=== PATIENT | male | born 1945 | race Hispanic/Latino ===

== ENCOUNTER 2018-10-23 14:00 | Outpatient (CLI) | payer MEDICARE, MEDICAID ==
--- NOTE | 2018-10-23 14:19 | RAD ---
XR Shoulder Rt 3 View STANDARD HISTORY:Acute right shoulder pain COMPARISON: 02/25/2008 study. 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 There is also glenohumeral joint space narrowi ng. There is no signs of fracture. Minimal worsening since prior exam. IMPRESSION: Arthritic changes of the shoulder.
== END 2018-10-23 14:01 | disposition home or self-care (01) ==
LOC: BICRAD 14:00
PROVIDERS: ATTEND Family Medicine
DX: M25.511 Pain in right shoulder (principal); M19.012 Primary osteoarthritis, left shoulder

== ENCOUNTER 2018-11-20 11:29 | Day surgery (SDC) | payer MEDICARE, MEDICAID ==
[2018-11-19 11:24] VITALS: BMI 22.6
[2018-11-20] MEDS ORDERED: Oxymetazoline HCl 0.05% ( 15 ML ) ONE ×2 (12:35→13:56)
[2018-11-20 12:38] LABS: Hemoglobin 15.7 g/dL (14.0-18.0)
[2018-11-20] MEDS ORDERED: Lidocaine 1% w/Epinephrine 1:100K 20 ML VIAL ONE (13:56)
[2018-11-20] MEDS ORDERED: EPINEPHrine 1 MG/ML AMP ONE (13:56)
[2018-11-20] MEDS ORDERED: Fentanyl 100 MCG/2 ML VIAL ONE (14:03)
[2018-11-20] MEDS ORDERED: Famotidine/PF 20 mg/2ml Vial ONE (14:03)
[2018-11-20 14:15] LABS: Chloride 106 mmol/L (98-107); Potassium 4.4 mmol/L (3.5-5.1); Sodium 140 mmol/L (136-145)
[2018-11-20 14:16] LABS: Calcium 9.6 mg/dL (7.8-10.44); Glucose 102 mg/dL (83-110)
[2018-11-20 14:17] LABS: Anion Gap 12 mmol/L (10-20); Carbon Dioxide 26 mmol/L (23-31)
[2018-11-20 14:19] LABS: Calc. Creatinine Clearance 40 mL/min (70-130); Estimated GFR-MDRD 46
[2018-11-20 14:20] LABS: BUN (Urea Nitrogen) 33 mg/dL (8.4-25.7)
[2018-11-20] MEDS ORDERED: PROPOFOL 200 MG/20 ML VIAL ONE (15:35)
[2018-11-20] MEDS ORDERED: ePHEDrine 50 MG/ML VIAL ONE (15:35)
[2018-11-20] MEDS ORDERED: Metoclopramide HCl 10 MG/2 ML VIAL ONE (15:35)
[2018-11-20] MEDS ORDERED: Succinylcholine Chloride 20 MG/ML 10 ml SYRINGE FS ONE (15:35)
[2018-11-20] MEDS ORDERED: Ondansetron PF 4 MG/2 ML Vial ONE (15:35)
[2018-11-20] MEDS ORDERED: Lidocaine 1% PF 5 ML VIAL ONE (15:35)
--- NOTE | 2018-11-21 09:56 | OP ---
DATE OF PROCEDURE: 11/20/2018 PREOPERATIVE DIAGNOSES: Profound septal deformity, obstructive inferior turbinate hypertrophy. PROCEDURES PERFORMED: 1. Septoplasty. 2. Bilateral nasal endoscopy with submucosal resection of inferior turbinates. FINDINGS: Profound anterior septal deformity with complete displacement from the maxillary crest. DESCRIPTION OF PROCEDURE: SEPTOPLASTY: After local anesthesia was infiltrated into the submucoperichondrial plane, a standard Jimmy incision was made with a #15 blade down to the level of the septal cartilage. The caudal elevator was used to elevate the mucoperichondrium from the underlying cartilage. We then proceeded beyond the bony cartilaginous junction and elevated the bony periosteum as well. Great attention was paid to the spur to prevent rent formation in the septal flap. A transcartilaginous incision was then made, while preserving an adequate dorsal and caudal cartilaginous strut for tip support. The deformed cartilage was removed and disarticulated from the bony cartilaginous junction and maxillary crest. This was placed in saline and would later be crushed and returned to the mucoperichondrial envelope. We then elevated the contralateral periosteum from the bony cartilaginous region and removed the deformed portions of the bone and bony spurs. The cartilage was then crushed and placed back into the mucoperichondrial envelope and the mucosa was re-approximated with a quilting stitch composed of rapidly absorbent gut suture. The [place] incision was also closed with interrupted gut suture. At the completion of the case, Paige splints were placed and suture secured to the caudal septum. BILATERAL NASAL ENDOSCOPY WITH SUBMUCOSAL RESECTION OF THE INFERIOR TURBINATES: After consent was obtained, the patient was identified, brought to the operating room, and placed on the operating room table in the supine position. Consent was obtained, notifying the patient of the possibility of additional infections, bleeding, brain injury, and eye/orbital injury. The patient was placed on the operating room table, and general endotracheal anesthesia and intravenous access was obtained. The patient was then positioned, prepped and draped for endoscopic sinus surgery. Nasal preparation included trimming nasal vestibular hairs and spraying in topical Afrin. We then placed Afrin topical solution on nasal pledgets and strategically located them intranasally. The perinasal mucosa was injected with 1% lidocaine with 1:100,000 epinephrine in the submucoperichondrial plane of the septum, lateral nasal wall, and anterior to the uncinate. The patient was then prepped and draped in a sterile fashion and positioned for endoscopic sinus surgery. With the 0-degree endoscope, the patient underwent systematic nasal endoscopy. There were no suspicious internasal masses or lesions identified. We then focused our attention to the osteomeatal complex region under the middle turbinate. The inferior turbinates were visualized with a 0 degree endoscope and outfractured with a [place] elevator. The inferior medial aspect was cauterized with the electrocautery. Hemostasis was obtained . After adequate airway was established, we turned our attention to the contralateral side and used a similar procedure. Again, a [place] elevator was used to outfracture inferior turbinates under endoscopic visualization. With a suction cautery, the free inferior medial aspect was cauterized under direct visualization along the length of the inferior turbinate. At this point, we then turned our attention to the contralateral side and proceeded with endoscopic sinus surgery. At the completion of the case, [place] keel splints were placed in the ethmoid cavities after the ethmoidectomy. There were no complications. The patient tolerated the procedure well and was discharged to the recovery room in stable condition prior to return to the preoperative day stay with ultimate discharge home. Prescriptions for pain medication and antibiotics were provided. The patient received intramuscular Depo-Medrol during the case. Job ID: [id number]
== END 2018-11-20 17:10 | disposition home or self-care (01) ==
LOC: SDC 11:29
PROVIDERS: ATTEND Specialist
PROC: 09BM8ZZ Excision of Nasal Septum, Via Natural or Artificial Opening Endoscopic (ICD-10-PCS; principal; 2018-11-20)
PROC: 09TL8ZZ Resection of Nasal Turbinate, Via Natural or Artificial Opening Endoscopic (ICD-10-PCS; 2018-11-20)
DX: M95.0 Acquired deformity of nose (principal); J34.3 Hypertrophy of nasal turbinates; M19.90 Unspecified osteoarthritis, unspecified site; F17.200 Nicotine dependence, unspecified, uncomplicated; Z79.82 Long term (current) use of aspirin; Z79.899 Other long term (current) drug therapy; Z95.0 Presence of cardiac pacemaker
CPT/HCPCS: 36415; 80048; 85014; 85018; 93005; 93010; J0131; J0171; J2001; J2405; J2704; J2765; J3010; J3490; S0028

== ENCOUNTER 2019-07-28 13:07 | Outpatient (CLI) | payer MEDICARE, MEDICAID ==
--- NOTE | 2019-07-28 16:16 | ULT ---
TESTICULAR ULTRASOUND: 07/28/19 HISTORY: Testicular pain, palpable nodule right testicle. FINDINGS: Both testicles are homogeneous. Testicles have symmetric size and appearance. Color Doppler with spec tral analysis demonstrates normal and equal blood flow to both testicles. Small bilateral hydroceles. There are two right epididymal cysts. The larger measures approximately 2.0 cm. The smaller measures 0.7 cm. IMPRESSION: 1. There are two right epididymal head cysts. The largest measures up to 2 cm and would probably correspond to the palpable abnormality. 2. Small bilateral hydroceles. POS: [facility]
== END 2019-07-28 13:08 | disposition home or self-care (01) ==
LOC: BICULT 13:07
PROVIDERS: ATTEND Family Medicine
DX: N50.811 Right testicular pain (principal); N43.3 Hydrocele, unspecified; N50.3 Cyst of epididymis
CPT/HCPCS: 76870; 93976